=== PATIENT | male | born 1960 | race Caucasian/White ===

== ENCOUNTER 2023-12-30 12:22 | Outpatient (CLI) | payer MEDICARE, MEDICAID ==
[~2023-12-30 12:22] MED LIST: BUPR-344 PO; BUSP10TA23 PO; GABA-1201 PO; HALO5TAB23 PO; VENL-193 PO
[2023-12-30 13:28] VITALS: BP 138/89; PULSE 84; RESP 18; TEMP 98.1; O2SAT 99
== END 2023-12-30 14:55 | disposition home or self-care (01) ==
LOC: CSU 12:22 → EDSTATUS 01-03 06:24
PROVIDERS: ATTEND Nurse Practitioner Psychiatric/Mental Health
DX: F25.0 Schizoaffective disorder, bipolar type (principal); F10.11 Alcohol abuse, in remission; F15.21 Other stimulant dependence, in remission; Z63.79 Other stressful life events affecting family and household
CPT/HCPCS: 90839; 90840